=== PATIENT | female | born 1960 | race American Indian/Alaskan Native ===

== ENCOUNTER 2018-03-26 13:48 | Outpatient (CLI) | payer OTHER ==
--- NOTE | 2018-03-28 14:15 | XRay Report ---
Chest 2 views: X. History chronic cough. Findings: Marked cardiomegaly. Trachea is midline. No consolidation, pneumothorax or pleural effusion. Impression: Mild cardiomegaly. No acute lung changes.
== END 2018-03-26 13:49 | disposition home or self-care (01) ==
LOC: XRAY 13:48
PROVIDERS: ATTEND Family Medicine
DX: I51.7 Cardiomegaly (principal); R05 Cough; R06.02 Shortness of breath
CPT/HCPCS: 71046